=== PATIENT | male | born 2000 | race Caucasian/White ===

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

== ENCOUNTER 2024-03-11 01:12 | Emergency (ER) | payer BC, OTHER ==
[2024-03-11 01:19] VITALS: PULSE 80
[2024-03-11] MEDS: Lidocaine 1% 5 ML VIAL INJECT ONE (02:23)
[2024-03-11] MEDS: Bacitracin Oint 1 GM U/D Packet TOP ONE (02:26)
[2024-03-11] MEDS: Cephalexin 500 MG Cap PO ONE (03:02)
[2024-03-11 03:03] VITALS: BP 151/69
== END 2024-03-11 03:15 | disposition home or self-care (01) ==
LOC: LL.ED 01:12
DX: S67.197A Crushing injury of left little finger, initial encounter (principal); S62.636B Displaced fracture of distal phalanx of right little finger, initial encounter for open fracture; W23.1XXA Caught, crushed, jammed, or pinched between stationary objects, initial encounter
CPT/HCPCS: 12002; 73140-F9; 99283; A9270-GY; J3490